=== PATIENT | male | born 1995 | race Caucasian/White ===

== ENCOUNTER → 2017-03-05 | Outpatient (CLI) | payer BC, OTHER ==
--- NOTE | 2017-03-05 09:31 | REP ---
Clinical: Sprain. Technique: AP, lateral, bilateral oblique views of the left ankle. Findings: Medial soft tissue swelling consistent with injury. No obvious acute fracture or dislocation. A round bony density projects over the medial aspect of the ankle mortise on the frontal and oblique views and is difficult to clearly identified on lateral view. Finding is nonspecific and does not appear to relate to acute injury however correlation may be warranted. This may reflect a small bony protuberance off the posterior aspect of the distal tibia or talus as well as may reflect a small free fragment related to prior avascular necrosis. Impression: 1. Medial soft tissue swelling consistent with acute injury. 2. Possible small bony fragment/loose body as described above may warrant further investigation. No prior examination is available for comparison. Signed by Yosef Reese MD 03/05/2017 09:22 A
== END ==
LOC: M WUC 08:31
PROVIDERS: ATTEND Physician Assistant
DX: M25.572 Pain in left ankle and joints of left foot (principal)

== ENCOUNTER → 2024-05-31 | Outpatient (CLI) | payer BC | LOC: M WHC 12:32 | PROVIDERS: ATTEND Physician Assistant | DX: M79.661 Pain in right lower leg (principal) ==

== ENCOUNTER → 2024-06-24 | Outpatient (CLI) | payer BC | LOC: M RAD 10:24 | PROVIDERS: ATTEND Physician Assistant | DX: M79.661 Pain in right lower leg (principal) ==